=== PATIENT | female | born 1950 | race Caucasian/White ===

== ENCOUNTER 2018-08-08 13:21 | Outpatient (CLI) | payer MEDICARE, BC | END 2018-08-08 13:22 | disposition home or self-care (01) | LOC: BICMAMMO 13:21 | PROVIDERS: ATTEND Internal Medicine Medical Oncology | DX: Z12.31 Encounter for screening mammogram for malignant neoplasm of breast (principal); Z85.3 Personal history of malignant neoplasm of breast | CPT/HCPCS: 77063; 77067 ==

== ENCOUNTER 2018-10-15 09:30 | Outpatient (CLI) | payer OTHER | END 2018-10-15 09:31 | disposition home or self-care (01) | LOC: DTY/OP 09:30 | PROVIDERS: ATTEND Family Medicine | DX: R73.03 Prediabetes (principal) | CPT/HCPCS: 97802 ==

== ENCOUNTER 2019-09-25 09:59 | Outpatient (CLI) | payer MEDICARE, BC ==
--- NOTE | 2019-09-25 13:34 | MMO ---
Bilateral MAMMO Bilat Screen [facility]. CLINICAL HISTORY: Patient is 68 years old and is seen for screening. The patient has no family history of breast cancer. The patient has a history of Skin cancer. The patient has a history of bilateral Excisional Biopsy in over 10 yrs - benign. VIEWS: The views performed were: bilateral craniocaudal with tomosynthesis and bilateral mediolateral oblique with tomosynthesis. FILMS COMPARED: The present examination has been compared to prior imaging studies performed at [facility] on 06/08/2015, 03/13/2017 and 08/08/2018, and at [facility] on 06/03/2014. This study has been interpreted with the assistance of computer-aided detection. MAMMOGRAM FINDINGS: There are scattered fibroglandular densities. There are no suspicious masses, suspicious calcifications, or new areas of architectural distortion. IMPRESSION: THERE IS NO MAMMOGRAPHIC EVIDENCE OF MALIGNANCY. A ROUTINE FOLLOW-UP MAMMOGRAM IN 1 YEAR IS RECOMMENDED. THE RESULTS OF THIS EXAM WERE SENT TO THE PATIENT. ACR BI-RADS Category 1 - Negative MAMMOGRAPHY NOTE: 1. A negative mammogram report should not delay a biopsy if a dominant of clinically suspicious mass is present. 2. Approximately 10% to 15% of breast cancers are not detected by mammography. 3. Adenosis and dense breasts may obscure an underlying neoplasm. Reported by: IVAN SIMMONS MD Electonically Signed: [id number]
== END 2019-09-25 10:00 | disposition home or self-care (01) ==
LOC: BICMAMMO 09:59
PROVIDERS: ATTEND Family Medicine
DX: Z12.31 Encounter for screening mammogram for malignant neoplasm of breast (principal)
CPT/HCPCS: 77063; 77067

== ENCOUNTER 2020-08-19 09:07 | Outpatient (CLI) | payer MEDICARE, BC ==
--- NOTE | 2020-08-19 10:28 | ULT ---
Exam: Abdominal aortic ultrasound HISTORY: Family history of aneurysm. Comparison none TECHNIQUE: Grayscale, color flow, Doppler imaging and spectral waveform analysis of the aorta FINDINGS: No evidence of aneurysm Proximal aorta measures 2.4 cm the AP dimension. Mid aorta measures 1.9 cm in AP dimension. Distal ao rta measures 1.7 cm in the AP dimension Visualized aorta has triphasic flow. There is atherosclerotic plaque in the distal abdominal aorta. IMPRESSION: No evidence of aneurysm.
--- NOTE | 2020-08-19 11:15 | BD ---
BONE DENSITOMETRY USING DEXA: HISTORY: Postmenopausal screening for osteoporosis. FINDINGS: Lumbar Spine: BMD (g/cm2) L1 1.251 T-Score: 2.4 Z-Score: 4.3 L2 1.415 T-Score: 3.5 Z-Score: 5.7 L3 1.620 T-Score: 4.9 Z-Score: 7.2 L4 1.490 T-Score: 3.9 Z-Score: 6.3 L1-L4 1.448 T-Score: 3.6 Z-Score: 5.9 Femoral Neck: 0.972 T-Score: 1.1 Z-score: 3.0 Total Femur: 1.213 T-Score: 2.2 Z-Score: 3.8 Impression: Normal bone mineral density. POS: AH
== END 2020-08-19 09:08 | disposition home or self-care (01) ==
LOC: BICULT 09:07
PROVIDERS: ATTEND Family Medicine
DX: Z13.6 Encounter for screening for cardiovascular disorders (principal); Z13.820 Encounter for screening for osteoporosis; Z78.0 Asymptomatic menopausal state
CPT/HCPCS: 76775; 77080

== ENCOUNTER 2021-09-26 12:17 | Outpatient (CLI) | payer MEDICARE, BC | END 2021-09-26 12:18 | disposition home or self-care (01) | LOC: BICMAMMO 12:17 | PROVIDERS: ATTEND Family Medicine | DX: Z12.31 Encounter for screening mammogram for malignant neoplasm of breast (principal); Z91.89 Other specified personal risk factors, not elsewhere classified; Z85.828 Personal history of other malignant neoplasm of skin | CPT/HCPCS: 77063; 77067 ==